=== PATIENT | male | born 1950 | race Caucasian/White ===

== ENCOUNTER 2017-01-27 18:10 | Emergency (ER) | payer OTHER ==
--- NOTE | ~2017-01-27 | CR72 ---
[facility] A Service of [facility] RADIOLOGY TEXT RESULTS PATIENT: FELICITY GHOSH LOCATION: [facility] : 54 UNIT #: [id number] AGE: [address]: Indra Lynn DO SEX: M ORDER DR: [id number] [facility] [address] [place], [place] [address] [id number] E MR#: [id number] Acc #: [id number] NAME: FELICITY GHOSH : 1950 SEX: M STUDY DATE/TIME: 01/27/2017 18:48 UNIT: [facility] ROOM: STUDY DESCRIPTION: CR Chest Single View Portable Attending Physician: Indra Lynn D.O. Ordering Physician: Indra Lynn D.O. Primary Care Physician: No Primary Care Physician MEDICAL IMAGING REPORT This report is preliminary unless electronic signature is present EXAM Portable chest HISTORY Shortness of air and fever, syncope and chest pain today. Fell today. FINDINGS Cardiac size and pulmonary vascularity are within normal limits. Mild chronic elevation of the right hemidiaphragm. Sternotomy. Surgical clips in the left apex. IMPRESSION No acute findings and no active disease. Dictated by... Williams Levy M.D. THIS IS AN ELECTRONICALLY VERIFIED REPORT Williams Levy M.D. at 01/28/2017 11:29 PM DFL/jr TD: 01/28/2017 01:26 JOB #: [id number] MEDICAL IMAGING REPORT Page 1 of 1 COPY
--- NOTE | ~2017-01-27 | CT52 ---
[facility] A Service of [facility] RADIOLOGY TEXT RESULTS PATIENT: FELICITY GHOSH LOCATION: [facility] : 54 UNIT #: [id number] AGE: [address]: Indra Lynn DO SEX: M ORDER DR: [id number] [facility] [address] [place], [place] [address] [id number] E MR#: [id number] Acc #: [id number] NAME: FELICITY GHOSH : 1950 SEX: M STUDY DATE/TIME: 01/27/2017 19:43 UNIT: [facility] ROOM: STUDY DESCRIPTION: CT Cervical Spine Wo Cont Attending Physician: Indra Lynn D.O. Ordering Physician: Indra Lynn D.O. Primary Care Physician: No Primary Care Physician MEDICAL IMAGING REPORT This report is preliminary unless electronic signature is present EXAM CT cervical spine without contrast 01/27/2017 HISTORY 66-year-old male with neck pain status post syncope and fall today. COMPARISON CT cervical spine 08/26/2015 TECHNIQUE Helical scan performed through the cervical spine without IV contrast. Coronal and sagittal reformatted images. This CT exam was performed with one or more of the following radiation dose reduction techniques: automatic control, adjustment of mA and/or kV according to patient size, and iterative reconstruction. FINDINGS No evidence of acute fracture or subluxation. Vertebral body heights and alignment are normally maintained. Prevertebral soft tissues are normal. Atlantoaxial relationship is normal. Cervicothoracic junction is unremarkable. There are moderately advanced degenerative disc changes at C5-6 and C6-C7. Mild multilevel facet degeneration. Paravertebral soft tissues are unremarkable. Visualized lung apices are unremarkable. IMPRESSION 1. No acute cervical spine injury. 2. Moderately advanced multilevel degenerative changes, detailed above. Dictated by... Angelito Ayala M.D. THIS IS AN ELECTRONICALLY VERIFIED REPORT Angelito Ayala M.D. at 01/31/2017 7:49 AM [facility] A Service of [facility] RADIOLOGY TEXT RESULTS PATIENT: FELICITY GHOSH LOCATION: [facility] : 52 UNIT #: [id number] AGE: [address]: Indra Lynn DO SEX: M ORDER DR: JAIME/rnr TD: 01/28/2017 01:54 JOB #: [id number] MEDICAL IMAGING REPORT Page 1 of 1 COPY
--- NOTE | ~2017-01-27 | CT71 ---
[facility] A Service of [facility] RADIOLOGY TEXT RESULTS PATIENT: FELICITY GHOSH LOCATION: [facility] : 54 UNIT #: [id number] AGE: [address]: Indra Lynn DO SEX: M ORDER DR: [id number] [facility] [address] [place], [place] [address] [id number] E MR#: [id number] Acc #: [id number] NAME: FELICITY GHOSH : 1950 SEX: M STUDY DATE/TIME: 01/27/2017 19:37 UNIT: [facility] ROOM: STUDY DESCRIPTION: CT Head Wo Contrast Attending Physician: Indra Lynn D.O. Ordering Physician: Indra Lynn D.O. Primary Care Physician: No Primary Care Physician MEDICAL IMAGING REPORT This report is preliminary unless electronic signature is present EXAM CT head without contrast. DATE OF EXAM 01/27/2017 HISTORY 66-year-old male with headache, status post syncope and fall today. COMPARISON CT head, 08/26/2015. TECHNIQUE Routine unenhanced axial images performed through the brain. This CT exam was performed with one or more of the following radiation dose reduction techniques: automatic exposure control, adjustment of mA and/or kV according to patient size, and iterative reconstruction. FINDINGS No hemorrhage, acute infarction, mass lesion, or abnormal extraaxial fluid collection. No midline shift or focal mass effect. Ventricular system normal in size and configuration. Moderate generalized atrophy. Mild chronic small vessel disease. No acute bony abnormality. Mucosal thickening and an air-fluid level in the right sphenoid sinus. Partial fluid opacification left mastoid air cells. IMPRESSION 1. No acute intracranial abnormality. 2. Moderate generalized atrophy and mild chronic small vessel disease, unchanged from prior exam. 3. Mucosal thickening and small air-fluid level in the right sphenoid sinus. 4. Partial fluid opacification left mastoid air cells. [facility] A Service of [facility] RADIOLOGY TEXT RESULTS PATIENT: FELICITY GHOSH LOCATION: [facility] : 54 UNIT #: [id number] AGE: [address]: Indra Lynn DO SEX: M ORDER DR: Dictated by... Angelito Ayala M.D. THIS IS AN ELECTRONICALLY VERIFIED REPORT Angelito Ayala M.D. at 01/31/2017 7:47 AM JAIME/mariam TD: 01/28/2017 01:38 JOB #: [id number] MEDICAL IMAGING REPORT Page 1 of 1 COPY
--- NOTE | ~2017-01-27 | EKG ---
PATIENT: FELICITY GHOSH UNIT #: [id number] Ventricular Rate: 121 BPM Atrial Rate: 121 BPM P-R Interval: 158 ms QRS Duration: 90 ms Q-T Interval: 318 ms QTC Calculation(Bezet): 451 ms P [place]: 57 degrees Calculated R [place]: -53 degrees Calculated T [place]: 34 degrees Diagnosis Line: Sinus tachycardia Diagnosis Line: Left atrial enlargement Diagnosis Line: Left anterior fascicular block Diagnosis Line: Inferior infarct , age undetermined Diagnosis Line: Abnormal ECG Diagnosis Line: No previous ECGs available Diagnosis Line: Confirmed by SHANNAN SALES MD ([id number]) on 01/28/2017 Diagnosis Line: 8:06:52 PM INTERPRETING MD: HENRRY OROZCO
[~2017-01-27 18:10] MED LIST: FLOMAX0.4 M1 PO; IBUPROFEN800 MG PO; NO MEDICATIONS; NORVASC PO; PERCOCET 7.5-31 EACH PO; ZOFRAN ODT4 MG/UDTAB SL
[2017-01-27 19:19] LABS: BASOPHIL% 0.3 % (0-2.5); EOSINOPHIL% 0.1 % (0.0-7.0); HEMATOCRIT 56.7 % (38.0-50.0); HEMOGLOBIN 18.9 gm/dL (13.0-16.0); LYMPHOCYTE# 0.5 X10e3 (1.0-3.5); MEAN CORPUSCULAR HEMOGLOBIN 30.9 PG (28-34); MEAN CORPUSCULAR HGB CONC 33.2 g/dL (30-36); MONOCYTE# 0.5 X10e3 (0-1.0); MONOCYTE% 3.4 % (3.0-12.0); NEUTROPHIL# 12.6 X10e3 (1.5-7.1); NEUTROPHIL% 92.2 % (40-75); PLATELET COUNT 105 X10e3 (140-420); WHITE BLOOD COUNT 13.7 X10e3 (4.0-10.5)
[2017-01-27 19:22] LABS: DIFF IND NO
[2017-01-27 19:32] LABS: PARTIAL THROMBOPLASTIN TIME 24.7 SECONDS (23.5-31.3); PROTHROMBIN TIME (PATIENT) 10.8 SECONDS (9.6-11.5)
[2017-01-27 19:38] LABS: ALBUMIN SERUM 4.9 g/dL (3.5-5.0); BILIRUBIN, DIRECT 0.2 mg/dL (0.0-0.2); BILIRUBIN,TOTAL 1.2 mg/dL (0.2-2.0); CALCIUM SERUM 9.7 mg/dL (8.4-10.2); GLOM FILT RATE Estimated 79.2 mL/min (>60); POTASSIUM 3.9 mmol/L (3.5-5.1); PROTEIN TOTAL SERUM 8.6 g/dL (6.0-8.3)
[2017-01-27 21:27] LABS: POC - CKMB 2.1 ng/mL (0.0-7.9); POC - TROPONIN <0.05 ng/mL (<=0.05)
[2017-01-27 22:49] LABS: POC - CKMB 2.6 ng/mL (0.0-7.9); POC - TROPONIN <0.05 ng/mL (<=0.05)
== END 2017-01-27 23:50 | disposition short-term general hospital (02) ==
LOC: CED 18:10
PROVIDERS: Emergency Medicine
DX: S01.01XA Laceration without foreign body of scalp, initial encounter (principal); R55 Syncope and collapse; F41.9 Anxiety disorder, unspecified; F17.210 Nicotine dependence, cigarettes, uncomplicated; Z79.899 Other long term (current) drug therapy; W18.00XA Striking against unspecified object with subsequent fall, initial encounter; Y92.9 Unspecified place or not applicable
CPT/HCPCS: 12002; 36415; 70450; 71010; 72125; 80048; 80076; 82553; 84484; 85025; 85610; 85730; 93005; 96374; 96375; 96376; 99285; J2060; J2270; J2405

== ENCOUNTER 2017-03-22 15:49 | Emergency (ER) | payer OTHER ==
--- NOTE | ~2017-03-22 | EKG ---
PATIENT: FELICITY GHOSH UNIT #: [id number] Ventricular Rate: 122 BPM Atrial Rate: 122 BPM P-R Interval: 158 ms QRS Duration: 88 ms Q-T Interval: 324 ms QTC Calculation(Bezet): 461 ms P [place]: 41 degrees Calculated R [place]: -48 degrees Calculated T [place]: 44 degrees Diagnosis Line: Sinus tachycardia Diagnosis Line: Left atrial enlargement Diagnosis Line: Left anterior fascicular block Diagnosis Line: Inferior infarct (cited on or before 27-JAN-2017) Diagnosis Line: Abnormal ECG Diagnosis Line: When compared with ECG of 27-JAN-2017 18:46, Diagnosis Line: No significant change was found Diagnosis Line: Confirmed by WILFRED ZUNIGA MD ([id number]) on Diagnosis Line: 03/23/2017 8:22:25 AM INTERPRETING MD: NADIA OROZCO
--- NOTE | ~2017-03-22 | CT71 ---
[facility] A Service of [facility] RADIOLOGY TEXT RESULTS PATIENT: FELICITY GHOSH LOCATION: [facility] : 54 UNIT #: [id number] AGE: [address]: Richi Porras MD SEX: M ORDER DR: [id number] [facility] [address] [place], [place] [address] [id number] E MR#: [id number] Acc #: [id number] NAME: FELICITY HGOSH : 1950 SEX: M STUDY DATE/TIME: 03/22/2017 16:39 UNIT: [facility] ROOM: STUDY DESCRIPTION: CT Head Wo Contrast Attending Physician: Richi Porras M.D. Ordering Physician: Richi Porras M.D. Primary Care Physician: Primary Care Physician No MEDICAL IMAGING REPORT This report is preliminary unless electronic signature is present EXAM Head CT without HISTORY Fall. Patient fell and hit head after drinking 2 pints of whiskey today. Also has neck discomfort today. No cancer history. This CT exam was performed with one or more of the following radiation dose reduction techniques: automatic exposure control, adjustment of mA and/or kV according to patient size, and iterative reconstruction. FINDINGS Routine noncontrast head CT is reviewed. Comparison study is from 01/27/2017. There is no displaced calvarial fracture. The mastoid air cells are clear. The visualized paranasal sinuses are clear. There are vascular calcifications at the base of the brain. There is atrophy in general for age group. There is no evidence for acute intracranial hemorrhage or extraaxial fluid collection. The basilar cisterns are patent. There is no hydrocephalus. There is no intracranial mass effect. There is no acute cortical infarct suspected. IMPRESSION 1. There is no acute intracranial abnormality. 2. Atrophy seen generalized fashion with vascular calcifications base of the brain. Dictated by... [facility][1] RADIOLOGY TEXT RESULTS PATIENT: FELICITY GHOSH LOCATION: [facility] : 54 UNIT #: [id number] AGE: [address]: Richi Porras MD SEX: M ORDER DR: Shruthi Mathur M.D. THIS IS AN ELECTRONICALLY VERIFIED REPORT Shruthi Mathur M.D. at 03/23/2017 7:54 AM ADITYA/sterling TD: 03/23/2017 02:52 JOB #: [id number] MEDICAL IMAGING REPORT Page 1 of 1 COPY
[2017-03-22 16:38] LABS: BASOPHIL% 0.5 % (0-2.5); EOSINOPHIL% 0.2 % (0.0-7.0); HEMATOCRIT 55.4 % (38.0-50.0); HEMOGLOBIN 18.3 gm/dL (13.0-16.0); LYMPHOCYTE# 1.6 X10e3 (1.0-3.5); LYMPHOCYTE% 24.6 % (17.0-45.0); MEAN CELL VOLUME 90.5 FL (83-96); MEAN CORPUSCULAR HGB CONC 33.1 g/dL (30-36); MEAN PLATELET VOLUME 7.9 FL (6.5-11.5); MONOCYTE# 0.2 X10e3 (0-1.0); MONOCYTE% 3.5 % (3.0-12.0); NEUTROPHIL# 4.7 X10e3 (1.5-7.1); NEUTROPHIL% 71.2 % (40-75); PLATELET COUNT 208 X10e3 (140-420); RED BLOOD COUNT 6.12 X10e (3.90-5.60); RED CELL DISTRIBUTION WIDTH 14.7 % (11.0-15.5); WHITE BLOOD COUNT 6.7 X10e3 (4.0-10.5)
[2017-03-22 16:40] LABS: DIFF IND NO
[2017-03-22 17:51] LABS: AMPHETAMINE NEG (NEG); BARBITURATES NEG (NEG); BENZODIAZEPINES NEG (NEG); COCAINE NEG (NEG); MARIJUANA NEG (NEG); OPIATES NEG (NEG); TRICYCLIC ANTIDEPRESSANTS NEG (NEG); U METHADONE NEG (NEG)
[2017-03-22 18:01] LABS: CALCIUM SERUM 8.4 mg/dL (8.4-10.2); CREATININE SERUM 0.8 mg/dL (0.6-1.4); GLOM FILT RATE Estimated 94.4 mL/min (>60); POTASSIUM 3.8 mmol/L (3.5-5.1)
== END 2017-03-22 21:15 | disposition home or self-care (01) ==
LOC: CED 15:49
PROVIDERS: Emergency Medicine
DX: S13.4XXA Sprain of ligaments of cervical spine, initial encounter (principal); S00.03XA Contusion of scalp, initial encounter; I10 Essential (primary) hypertension; F17.200 Nicotine dependence, unspecified, uncomplicated; F10.129 Alcohol abuse with intoxication, unspecified; Y90.8 Blood alcohol level of 240 mg/100 ml or more; R73.9 Hyperglycemia, unspecified; Z79.899 Other long term (current) drug therapy; W20.8XXA Other cause of strike by thrown, projected or falling object, initial encounter; Y92.009 Unspecified place in unspecified non-institutional (private) residence as the place of occurrence of the external cause
CPT/HCPCS: 36415; 70450; 72125; 80048; 80307; 85025; 93005; 96360; 96361; 99285; G0480